=== PATIENT | male | born 1990 | race Caucasian/White ===

== ENCOUNTER 2018-04-22 22:45 | Emergency (ER) | payer BC, OTHER ==
[~2018-04-22] VITALS: Ht 190.5 cm; Wt 132.4 kg
[~2018-04-22 22:45] MED LIST: Bactrim Ds Tab1 EACH PO; CLIN300 PO; HYDR1TAB94 PO; RIFA300 PO
[2018-04-22 23:49] LABS: BASOPHILS ABSOLUTE AUTO 0.02 K/mm3 (0.00-0.23); BASOPHILS PERCENT AUTO 0 % (0-2); EOSINOPHILS ABSOLUTE AUTO 0.25 K/mm3 (0.00-0.68); EOSINOPHILS PERCENT AUTO 4 % (0-6); Hematocrit 42.6 % (37.0-53.0); Hemoglobin 14.6 g/dL (13.5-17.5); IMMATURE GRAN ABSOLUTE AUTO 0.02 K/mm3 (0.00-0.10); IMMATURE GRAN PERCENT AUTO 0 % (0-1); LYMPHOCYTES ABSOLUTE AUTO 1.98 K/mm3 (0.84-5.20); LYMPHOCYTES PERCENT AUTO 28 % (21-46); MONOCYTES ABSOLUTE AUTO 0.81 K/mm3 (0.16-1.47); MONOCYTES PERCENT AUTO 12 % (4-13); Mean Corpuscular HGB 32.4 pg (26.0-34.0); Mean Corpuscular HGB Conc 34.3 g/dL (31.5-36.5); Mean Corpuscular Volume 95 fL (80-100); Mean Platelet Volume 9.3 fL (9.1-12.4); NEUTROPHILS ABSOLUTE AUTO 3.92 K/mm3 (1.96-9.15); NEUTROPHILS PERCENT AUTO 56 % (41-73); Platelet Count 251 K/mm3 (150-400); RDW Coefficient Variation 11.5 % (11.7-14.2); RDW Standard Deviation 40.1 fL (35.1-46.3); Red Blood Cell Count 4.51 M/mm3 (4.30-5.90)
[2018-04-23 00:03] LABS: Anion Gap 8 mmol/L (6-16); Blood Urea Nitrogen 17 mg/dL (8-24); Bun/Creatinine Ratio 17.6 (12.0-20.0); CO2, Blood 24 mmol/L (21-32); Calcium, Blood 8.8 mg/dL (8.5-10.1); Chloride, Blood 108 mmol/L (98-108); Creatinine, Blood 0.97 mg/dL (0.60-1.20); Glomerular Filtration Rate >60 (60-); Glucose, Blood 109 mg/dL (70-99); Potassium, Blood 3.8 mmol/L (3.5-5.5); Sodium, Blood 140 mmol/L (136-145)
== END 2018-04-23 00:14 | disposition home or self-care (01) ==
LOC: ER 22:45
PROVIDERS: Emergency Medicine
DX: L08.9 Local infection of the skin and subcutaneous tissue, unspecified (principal); F17.210 Nicotine dependence, cigarettes, uncomplicated; Z79.899 Other long term (current) drug therapy
CPT/HCPCS: 36415; 80048; 85025; 85651; 99283

== ENCOUNTER 2018-04-25 14:11 | Observation (INO) | payer BC, OTHER ==
[~2018-04-25] VITALS: Ht 190.5 cm; Wt 137.5 kg
--- NOTE | 2018-04-25 14:46 | NUR ---
Ambulatory in Day Surgery History, Chart, Medications and Allergies reviewed before start of procedure.Lungs clear T/O to Auscultation. Patient confirms NPO status and agrees with scheduled surgery.
--- NOTE | 2018-04-25 15:30 | NUR ---
"DAY SURGERY RN | MEDICATION HAND-OFF Handed off 2mg of Versed IV to Rosa Isela HENDRIX. Clinical Coordinator Lucia Ervin RN and primary nurse Jessica Delarosa RN aware of situation."
--- NOTE | 2018-04-25 17:57 | NUR ---
FENTANYL NOT CROSSING OVER TO EMAR SEE PAPER MAR
--- NOTE | 2018-04-25 19:45 | NUR ---
PT ADMITED FROM [facility]ERY. I&D OF RLL DONE. PULSES STRONG. PT ORIENTED TO ROOM. COMFORTABLE IN BED. CALL LIGHT IN REACH. WILL BE PRESUMED BY NIGHT NURSE FOR FURTHER ADMISSION AND CARE.
--- NOTE | 2018-04-25 22:20 | NUR ---
PRN NORCO GIVEN AT 2014 FOR PAIN OF 6/10. AT 2129 HE STATED THAT HIS PAIN HAD INCREASED BACK TO 6/10. DR. FELIX GAMBRELER HELPER FOR DR. DELAROSA CONTACTED DUE TO THE BREAKTHRU PAIN. FENTANYL 25 - 50MCG IVP Q 1HRS ORDERED FOR BREAKTHRU PAIN. 50MCG GIVEN SIVP FOR PAIN OF 6/10. SAFETY MEASURES IN PLACE. WILL CONTINUE TO MONITOR.
--- NOTE | 2018-04-26 05:15 | NUR ---
REDNESS NOTED ABOVE PIV SITE TO LEFT AC AFTER VANC INFUSED PER PUMP. REPORTED TENDERNESS WHEN PRN BREAKTHROUGH PAIN MED GIVEN SIVP. NEW 20G PIV PLACED TO RIGHT FA X1 ATTEMPT. FLUSHES WITH EASE AND GREAT BLOOD RETURN NOTED. LR AT 80ML/HR PLACED TO NEW SITE. LEFT AC 20G PIV REMOVED WITH CATH TIP INTACT. DENIES PAIN, DISCOMFORT, OR OTHER NEEDS AT THIS TIME. SAFETY MEASURES IN PLACE. WILL CONTINUE TO MONITOR.
--- NOTE | 2018-04-26 06:14 | NUR ---
LYING IN SEMI FOWLERS WITH EYES OPEN. READING BOOK AT THIS TIME. PAIN IS MANAGED WITH NORCO PRN AND FENTANYL FOR BREAKTHROUGH. NURSING REITERATED WHEN TO CALL TO AVOID NEEDING THE BREAKTHROUGH MED, VOICES UNDERSTANDING. SAFETY MEASURES IN PLACE. WILL CONTINUE TO MONITOR.
--- NOTE | 2018-04-26 15:32 | NUR ---
Patient gave Kimmy Johnson permission to participate in care on 04/27/2018.
--- NOTE | 2018-04-26 17:20 | NUR ---
PT ENCOURAGED TO INFORM WHEN PAIN IS ABOUT A 4 ON SCALE OF 1-10 BEFORE BEING MEDICATED AN ATTEMPT TO STAY AHEAD OF THE PAIN, SEEMS TO BE WORKING VERY WELL. PT GETS VERY PAINFUL IF WAIT TO LONG TO MEDICATED PER REPORT FROM LAST NIGHT. PICC LINE PLAACED TODAY. OLD IV REMOVED, TOLERATED WELL. PT INDEPENDENT WITH WALKER TO BATHROOM. RIGHT LEG ELEVATED ON 3 PILLOWS. GREAT CAPILLARY REFILL AND PULSES ON AFFECTED FOOT. CALL LIGHT IN REACH, WILL CALL FOR ASSISTANCE.
[2018-04-27 01:33] LABS: Vancomycin, Trough 20.3 ug/mL (5.0-10.0)
--- NOTE | 2018-04-27 05:24 | NUR ---
S/P I&D X2 TO RIGHT FOOT. PT DID VERY WELL DURING NIGHT. PAIN IS MINIMAL AND PT ABLE TO AMBULATE INDEPENDENTLY. DRESSING WITH ONE SMALL SHADOWING ON TOP OF DRESSING THAT HASNT INCREASED DURING NIGHT. CIRC CHECKS GOOD. WIGGLES TOES, GOOD PULSES NO N/T. POSSIBLE DC HOME TODAY. CALL LIGHT IN REACH.
--- NOTE | 2018-04-27 11:09 | NUR ---
DR DELAROSA HERE CHANGING DRESSING. DR SNEED HERE WHILE FOOT OPEN TO AIR, BEFORE PLACING NEW PACKING/DRESSING.
--- NOTE | 2018-04-27 11:40 | NUR ---
DR DELAROSA RECENTLY BACK AND PACKED AND PLACED NEW DRESSING TO RLE. PT MED WITH IV PAIN MED PER DR DELAROSA.
--- NOTE | 2018-04-27 16:46 | NUR ---
SHIFT SUMMARY PT EATING AND DRINKING. PT BEEN ASSISTED WITH ADL'S PRN. PT HAD DRESSING CHANGED BY DR DELAROSA TODAY. DR SNEED IN TO SEE PT WHILE DRESSING OFF WITH DR DELAROSA. PT VOIDING.
--- NOTE | 2018-04-28 04:26 | NUR ---
SUMMARY: NO ACUTE CHANGE TONIGHT. VSS, SURGICAL SITE WNL. MEDICATED WITH 2 NARCO X1, PT REPORTS IS MANAGING PAIN WELL. ORAL ANTIBIOTIC GIVEN TONIGHT. PLAN IS TO CONTINUE DAILY DRESSING CHANGES AND PO ANTIBIOTICS. POSSIBLE DC TODAY. PT INDEPENDENT IN ROOM, WBAT ON R FOOT.
--- NOTE | 2018-04-28 18:03 | NUR ---
PATIENT STATES PAIN TOLERABLE AT THIS TIME. AWAITING DR DELAROSA TO CHANGE FOOT DRESSING TODAY. NO ACUTE CHANGES OR C/O.
[2018-04-28] MEDS ORDERED: Percocet 5-3251 EACH PO (19:35)
[2018-04-28] MEDS ORDERED: LINE600 PO (19:36)
--- NOTE | 2018-04-28 19:40 | NUR ---
DR DELAROSA IN TO SEE. LEG WOUND DRESSING CHANGED AND REPACKED. PATIENT TOLERATED WELL. PATIENT D/C'D HOME AT THIS TIME; STATES UNDERSTANDING [place] ABX, PAIN MED, F/U APPT ON TUESDAY, KEEPING WOUND CLEAN AND DRY. PICC LINE D/C' D AT 1845 BY JUSTUS ERAZO.
== END 2018-04-28 22:20 | disposition home or self-care (01) ==
LOC: ORD 14:11 → SURS 14:12 → ORD 18:17 → SURS 04-28 22:20
PROVIDERS: ADMIT Orthopaedic Surgery
PROC: 0JBQ0ZZ Excision of Right Foot Subcutaneous Tissue and Fascia, Open Approach (ICD-10-PCS; principal; 2018-04-25 16:00)
DX: L02.611 Cutaneous abscess of right foot (principal); Z87.891 Personal history of nicotine dependence
CPT/HCPCS: 36569; 80202; 86140; 87070; 87075; 87077; 87147; 87186; 87205; 96365; 96366; 96375; 96376; C1751; G0378; J2250; J2405; J3010; J3370; J7030; J7050; J7120